=== PATIENT | female | born 1990 | race Two or more races ===

== ENCOUNTER 2020-10-15 18:19 | Emergency (ER) | payer MEDICAID, OTHER ==
[~2020-10-15] VITALS: Ht 157.5 cm; Wt 95.3 kg
[2020-10-15 18:29] VITALS: BP 114/53
[2020-10-15] MEDS ORDERED: ACETAMINOPHEN 500 MG TAB PO ONE (18:30)
[2020-10-15 21:46] LABS: Urine Bacteria FEW /hpf (None Seen); Urine Blood 2+ /uL (Negative); Urine Mucus FEW (None Seen); Urine Specific Gravity 1.019 (1.001-1.035); Urine WBC 8 /hpf (0 - 5)
== END 2020-10-16 00:07 | disposition home or self-care (01) ==
LOC: ER 18:19
DX: O26.893 Other specified pregnancy related conditions, third trimester (principal); O21.2 Late vomiting of pregnancy; Z3A.31 31 weeks gestation of pregnancy; Z20.828 Contact with and (suspected) exposure to other viral communicable diseases
CPT/HCPCS: 36415; 81001; 87086; 87426